=== PATIENT | male | born 1960 | race Caucasian/White ===

== ENCOUNTER 2017-09-08 08:11 | Outpatient (CLI) | payer OTHER ==
[~2017-09-08 08:11] MED LIST: KETO10TA2 PO; PNEU16DI2; TAMS0.4C PO; ZITHROMAX TRI-500 MG
== END 2017-09-08 09:44 | disposition home or self-care (01) ==
LOC: NUCLEAR 08:11
DX: E11.51 Type 2 diabetes mellitus with diabetic peripheral angiopathy without gangrene (principal)

== ENCOUNTER 2017-09-14 07:43 | Outpatient (CLI) | payer OTHER | END 2017-09-14 07:52 | disposition home or self-care (01) | LOC: NUCLEAR 07:43 | DX: I87.2 Venous insufficiency (chronic) (peripheral) (principal) ==

== ENCOUNTER 2024-12-05 17:31 | Emergency (ER) | payer OTHER ==
[~2024-12-05] VITALS: Ht 182.9 cm; Wt 122.0 kg
[2024-12-05] MEDS ORDERED: METFORMIN HCL500 M3 (17:52)
[2024-12-05] MEDS ORDERED: LIPITOR20 MG (17:53)
[2024-12-05] MEDS ORDERED: LISINOPRIL2.5 MG (17:53)
[2024-12-05 18:53] LABS: BASO % 0.9 % (0.1-1.2); EOS % 3.3 % (0.7-7.0); HEMATOCRIT 44.9 % (40.1-51.0); LYMPH # 2.48 (1.18-3.74); LYMPH % 27.5 % (19.3-53.1); MEAN CORPUSCULAR HEMOGLOBIN 29.4 pg (25.6-32.2); MONO # 1.03 (0.24-0.82); MONO % 11.4 % (4.7-12.5); NEUT # 5.11 (1.56-6.13); NEUT % 56.7 % (34.0-71.1); PLATELET COUNT 213 K/uL (163-369); RED BLOOD COUNT 5.11 M/uL (4.63-6.08); RED CELL DISTRIBUTION WIDTH 13.5 % (11.6-14.4)
[2024-12-05 18:56] LABS: PARTIAL THROMBOPLASTIN TIME 27.6 SECONDS (22.0-34.0); PROTHROMBIN TIME 10.9 SECONDS (9.0-11.5)
[2024-12-05 18:57] LABS: INFLUENZA A AG NEGATIVE (NEGATIVE); INFLUENZA B AG NEGATIVE (NEGATIVE)
[2024-12-05 18:59] LABS: ALBUMIN 3.9 gm/dL (3.4-5.0); BILIRUBIN TOTAL 0.31 mg/dL (0.3-1.2); CALCIUM 9.6 mg/dL (8.5-10.1); CREATININE SERUM 1.17 mg/dL (0.70-1.30); GFR 62.96; GLOBULINA 4.1 G/DL (2.4-3.5); POTASSIUM 3.94 mEq/L (3.5-5.1)
[2024-12-05 19:11] LABS: COVID-19 AG NEGATIVE (NEGATIVE)
[2024-12-05 19:13] LABS: URINE APPEARANCE Clear; URINE BILIRRUBIN Negative (NEGATIVE); URINE BLOOD Small; URINE COLOR Yellow; URINE GLUCOSE Negative (NEGATIVE); URINE KETONE Negative (NEGATIVE); URINE LEUKOCYTE Negative; URINE NITRATE Negative; URINE PROTEIN Negative (NEGATIVE); URINE UROBILINOGEN 0.2 E.U./dl
[2024-12-05 19:17] LABS: URINE BACTERIA 26.9 uL (0.0-1933); URINE EPITHELIAL CELLS 4.1 uL (0.0-38.8); URINE WBC 3.1 uL (0.0-23.2)
[2024-12-05 19:31] LABS: URINE RBC 1.9 uL (0.0-20.8)
== END 2024-12-05 19:54 | disposition home or self-care (01) ==
LOC: ER 17:31
PROVIDERS: General Practice
DX: B34.9 Viral infection, unspecified (principal); E11.9 Type 2 diabetes mellitus without complications; Z79.84 Long term (current) use of oral hypoglycemic drugs; I10 Essential (primary) hypertension; Z20.822 Contact with and (suspected) exposure to COVID-19